=== PATIENT | male | born 1975 | race Two or more races ===

== ENCOUNTER 2020-01-04 14:27 | Emergency (ER) | payer SELFPAY ==
[2020-01-04 14:56] VITALS: BP 145/95; PULSE 94
[2020-01-04] MEDS ORDERED: Ketorolac 60 MG/2 ML SDV IM ONE (16:42)
--- NOTE | 2020-01-04 16:50 | CT ---
CT abdomen and pelvis Technique: Multiple axial sections were obtained from above the kidneys inferiorly through the pubic symphysis. Intravenous and oral contrast not utilized. Study has been performed as a ureteral stone protocol. Comparison: Prior CT abdomen and pelvis study of 05/10/16. Findings: Visualized lung bases show nothing acute. Noncontrast appearance of the visualized liver appears within normal limits. Spleen appears normal. Adrenal glands show no nodule. No discrete abnormality is seen within the pancreas. Numerous nonobstructing calculi are seen within both kidneys. Low densities cystic areas appear to be present within both kidneys. No ureteral dilatation or ureteral stone is seen. Aorta shows no aneurysm. No retroperitoneal adenopathy or mesenteric abnormalities are seen. No pelvic mass or adenopathy is seen. No free fluid or inflammatory change is appreciated. Appendix is seen which is normal in size. Bone window settings were reviewed which shows scattered degenerative change within the spine which is most severe at L5-S1. Prominent posterior osteophytes are seen at L5-S1. Impression: 1. Multiple nonobstructing calculi within both kidneys. Calcifications have increased in number from previous exam. Low density cystic lesions are seen within the kidneys. No ureteral dilatation or ureteral stone is seen. 2. Other findings as noted above which are nonacute. Diagnostic code #2 This report was dictated in MDT
--- NOTE | 2020-01-04 17:22 | EDM.PDOC ---
ED HPI GENERAL MEDICAL PROBLEM - General Chief Complaint: General Stated Complaint: BACK PAIN, LEFT SIDE Time Seen by Provider: 01/04/20 14:55 Source of Information: Reports: Patient History Limitations: Reports: No Limitations - History of Present Illness INITIAL COMMENTS - FREE TEXT/NARRATIVE: Patient is a 44-year-old male who presents to the emergency department with right sided back pain that started yesterday morning upon waking. He describes it as a constant ache that requires him to change positions to get comfortable. He does have a history of kidney stones, however this does not feel similar to his kidney stones in the past. He states that yesterday he did have one episode of dysuria when he held his urine for too long, however he has had no recurrence since that time. He denies any nausea, vomiting, fever, or chills. Denies pain in any other location. He denies the possibility of a sexually transmitted infection as he is in a monogamous relationship. Left Lower Back Pain Score (Numeric/FACES): 7 - Related Data Allergies Allergy/AdvReac Type Severity Reaction Status Date / Time No Known Allergies Allergy Verified 01/04/20 14:56 Home Meds: Home Meds Ciprofloxacin [Ciprofloxacin HCl] 500 mg PO Q12H 10 Days #20 tab 01/04/20 [Rx] Past Medical History - Past Health History Medical/Surgical History: Denies Medical/Surgical History Genitourinary History: Reports: Renal Calculus Other Genitourinary History: states had stones 5 years ago - Past Surgical History GI Surgical History: Reports: Cholecystectomy Social & Family History - Family History Family Medical History: Noncontributory - Tobacco Use Smoking Status *Q: Current Some Day Smoker Years of Tobacco use: 11 Packs/Tins Daily: 0.2 - Caffeine Use Caffeine Use: Reports: None - Recreational Drug Use Recreational Drug Use: No ED ROS GENERAL - Review of Systems Review Of Systems: See Below Constitutional: Reports: No Symptoms. Denies: Fever, Chills, Weakness HEENT: Reports: No Symptoms Respiratory: Reports: No Symptoms Cardiovascular: Reports: No Symptoms Endocrine: Reports: No Symptoms GI/Abdominal: Denies: Abdominal Pain, Nausea, Vomiting : Reports: Dysuria, Flank Pain Skin: Reports: No Symptoms Neurological: Reports: No Symptoms Psychiatric: Reports: No Symptoms Hematologic/Lymphatic: Reports: No Symptoms Immunologic: Reports: No Symptoms ED EXAM, GENERAL - Physical Exam Exam: See Below Exam Limited By: No Limitations General Appearance: Alert, WD/WN, No Apparent Distress Respiratory/Chest: No Respiratory Distress, Lungs Clear, Normal Breath Sounds, No Accessory Muscle Use, Chest Non-Tender Cardiovascular: Normal Peripheral Pulses, Regular Rate, Rhythm, No Edema, No Gallop, No JVD, No Murmur, No Rub Back Exam: Normal Inspection, Full Range of Motion, Paraspinal Tenderness (Right-sided low back tenderness to superficial and deep palpation.) Neurological: Alert, Oriented, CN II-XII Intact, Normal Cognition, Normal Gait, Normal Reflexes, No Motor/Sensory Deficits Psychiatric: Normal Affect, Normal Mood Skin Exam: Warm, Dry, Intact, Normal Color, No Rash Course - Vital Signs Last Recorded V/S: Last Vital Signs Temp 97.7 F 01/04/20 14:52 Pulse 94 01/04/20 14:52 Resp 18 01/04/20 14:52 BP 145/95 H 01/04/20 14:52 Pulse Ox 97 01/04/20 14:52 - Orders/Labs/Meds Orders: Active Orders 24 hr Category Date Time Status CULTURE URINE [RM] Stat Lab 01/04/20 17:28 Ordered Labs: Laboratory Tests 01/04/20 01/04/20 01/04/20 Range/Units 15:08 16:28 16:28 WBC 12.48 H (4.23-9.07) K/mm3 RBC 4.66 (4.63-6.08) M/mm3 Hgb 14.3 D (13.7-17.5) gm/dl Hct 42.7 (40.1-51.0) % MCV 91.6 (79.0-92.2) fl MCH 30.7 (25.7-32.2) pg MCHC 33.5 (32.2-35.5) g/dl RDW Std Deviation 47.7 H (35.1-43.9) fL Plt Count 313 (163-337) K/mm3 MPV 9.5 (9.4-12.3) fl Neut % (Auto) 62.6 (34.0-67.9) % Lymph % (Auto) 25.5 (21.8-53.1) % Glenn % (Auto) 8.4 (5.3-12.2) % Eos % (Auto) 2.7 (0.8-7.0) Baso % (Auto) 0.7 (0.1-1.2) % Neut # (Auto) 7.81 H (1.78-5.38) K/mm3 Lymph # (Auto) 3.18 (1.32-3.57) K/mm3 Glenn # (Auto) 1.05 H (0.30-0.82) K/mm3 Eos # (Auto) 0.34 (0.04-0.54) K/mm3 Baso # (Auto) 0.09 H (0.01-0.08) K/mm3 Manual Slide Review Normal smear Sodium 142 (136-145) mEq/L Potassium 3.8 (3.5-5.1) mEq/L Chloride 105 (98-107) mEq/L Carbon Dioxide 26 (21-32) mEq/L Anion Gap 14.8 (5-15) BUN 9 (7-18) mg/dL Creatinine 0.9 (0.7-1.3) mg/dL Est Cr Clr Drug Dosing 102.56 mL/min Estimated GFR (MDRD) > 60 (>60) mL/min BUN/Creatinine Ratio 10.0 L (14-18) Glucose 107 H (74-106) mg/dL Calcium 8.6 (8.5-10.1) mg/dL Total Bilirubin 0.3 (0.2-1.0) mg/dL AST 13 L (15-37) U/L ALT 28 (16-63) U/L Alkaline Phosphatase 98 (46-116) U/L C-Reactive Protein 1.8 H* (<1.0) mg/dL Total Protein 7.3 (6.4-8.2) g/dl Albumin 3.7 (3.4-5.0) g/dl Globulin 3.6 gm/dL Albumin/Globulin Ratio 1.0 (1-2) Urine Color Yellow (Yellow) Urine Appearance Clear (Clear) Urine pH 6.5 (5.0-8.0) Ur Specific [place] > or = 1.030 (1.005-1.030) Urine Protein Trace H (Negative) Urine Glucose (UA) Negative (Negative) Urine Ketones Negative (Negative) Urine Occult Blood Negative (Negative) Urine Nitrite Negative (Negative) Urine Bilirubin Negative (Negative) Urine Urobilinogen 1.0 (0.2-1.0) Ur Leukocyte Esterase 1+ H (Negative) Urine RBC 0-5 (0-5) /hpf Urine WBC 50-75 H (0-5) /hpf Ur Squamous Epith Cells 0-5 (0-5) /hpf Urine Bacteria Few (FEW) /hpf Urine Mucus Moderate H (FEW) /hpf Meds: Medications Discontinued Medications Generic Name Dose Route Start Last Admin Trade Name Tamar PRN Reason Stop Dose Admin Ketorolac Tromethamine 60 mg 01/04/20 16:42 01/04/20 16:54 Toradol IM 01/04/20 16:43 60 mg ONETIME ONE Administration - Re-Assessments/Exams Free Text/Narrative Re-Assessment/Exam: On exam, patient has tenderness to superficial palpation of the lower right lower back which is likely musculoskeletal in nature. Of her, urinalysis showed 1+ leukocyte esterase and 50-75 WBCs. There is no occult blood or RBCs in the urine, but with the patient's history of kidney stones as well as his flank pain I have ordered a CT scan of the abdomen pelvis to look for signs of pyelonephritis or kidney stone. Have also ordered a CBC, CMP, and CRP. 01/04/20 17:21 Hematology was significant for WBC slightly elevated at 12.48, CRP 1.8. CT of the abdomen pelvis showed multiple nonobstructing calculi within both kidneys as well as low-density cystic lesions within the kidneys no ureteral dilation or ureteral stone is seen. We will start the patient on Cipro for urinary tract infection. Recommend [id number] Tylenol or ibuprofen as needed for back pain. Discussed that if he should have any worsening symptoms such as fever, chills, nausea, or vomiting, he should return for reevaluation. He is in agreement with this plan. Discharge instructions as documented. Departure - Departure Time of Disposition: 17:23 Disposition: Home, Self-Care 01 Condition: Good Clinical Impression: Back pain, UTI, Urinary tract infectious disease - Discharge Information *PRESCRIPTION DRUG MONITORING PROGRAM REVIEWED*: No *COPY OF PRESCRIPTION DRUG MONITORING REPORT IN PATIENT KAVON: No Prescriptions: Ciprofloxacin [Ciprofloxacin HCl] 500 mg PO Q12H 10 Days #20 tab Instructions: Urinary Tract Infection, Adult Referrals: PCP,None [Primary Care Provider] - Forms: ED Department Discharge Additional Instructions: You were seen in the emergency department today for right-sided back pain and an episode of burning with urination today. Work-up included blood work, urinalysi s, and a CT scan of your abdomen pelvis. Your urinalysis did show signs of a urinary tract infection which could be contributing to your back pain; however, this pain may also be musculoskeletal in nature. CT scan did not show any active kidney stones or other signs of inflammation. Prescription for Ciprofloxacin which is an antibiotic has been sent to [facility]. Take this medication as prescribed. You may use a hot pack to your back as well as Tylenol or ibuprofen as needed for discomfort. If you should experience any worsening symptoms such as fever, chills, nausea, or vomiting, I would recommend that she return to the emergency department for reevaluation. Sepsis Event Note (ED) - Evaluation Sepsis Screening Result: No Definite Risk - Focused Exam Vital Signs: Vital Signs Temp Pulse Resp BP Pulse Ox 01/04/20 14:52 97.7 F 94 18 145/95 H 97 - My Orders Last 24 Hours: My Active Orders 01/04/20 17:28 CULTURE URINE [RM] Stat - Assessment/Plan Last 24 Hours: My Active Orders 01/04/20 17:28 CULTURE URINE [RM] Stat
== END 2020-01-04 17:43 | disposition home or self-care (01) ==
LOC: JD.ED 14:27
DX: M54.5 Low back pain (principal); N39.0 Urinary tract infection, site not specified; F17.210 Nicotine dependence, cigarettes, uncomplicated
CPT/HCPCS: 36415; 74176; 80053; 81001; 85025; 86140; 87086; 87088; 87186; 96372; 99284; J1885